=== PATIENT | female | born 1945 | race Caucasian/White ===

== ENCOUNTER 2021-07-21 12:27 | Emergency (ER) | payer OTHER ==
[~2021-07-21] VITALS: Ht 165.1 cm; Wt 77.1 kg
[2021-07-21] MEDS ORDERED: MEMA10TA PO (12:42)
[2021-07-21] MEDS ORDERED: BENA20TA9 PO (12:42)
[2021-07-21] MEDS ORDERED: DULO60CA45 PO (12:42)
[2021-07-21] MEDS ORDERED: FEXO-65 PO (12:42)
[2021-07-21] MEDS ORDERED: ASPI81TA31 PO (12:42)
[2021-07-21] MEDS ORDERED: CHOL2000 PO (12:42)
[2021-07-21] MEDS ORDERED: LEVO88TA5 PO (12:42)
[2021-07-21] MEDS ORDERED: SENN-261 PO (12:42)
[2021-07-21] MEDS ORDERED: PANT40TA49 PO (12:42)
[2021-07-21] MEDS ORDERED: ATOR20TA PO (12:42)
[2021-07-21] MEDS ORDERED: ESCI20TA PO (12:42)
[2021-07-21] MEDS ORDERED: DOCU240C26 PO (12:42)
[2021-07-21 12:51] LABS: HEMATOCRIT 40.8 % (31.2-41.9); MEAN CORPUSCULAR HEMOGLOBIN 31.3 uug (24.7-32.8); MEAN CORPUSCULAR VOLUME 89.3 fL (75.5-95.3); PLATELET COUNT (AUTO) 275 K/uL (179-408)
[2021-07-21 12:56] LABS: CARBON DIOXIDE 24 mmol/L (21-32); CHLORIDE 105 mmol/L (98-107); CREATININE 0.8 mg/dL (0.6-1.3); GLUCOSE 87 mg/dL (74-106); POTASSIUM 4.1 mmol/L (3.5-5.1); UREA NITROGEN, BLOOD 13 mg/dL (7-18)
[2021-07-21 13:07] LABS: ALANINE AMINOTRANSFERASE 20 U/L (14-59); ALKALINE PHOSPHATASE 111 U/L (50-136); ASPARTATE AMINOTRANSFERASE 23 U/L (15-37); BILIRUBIN,DIRECT 0.1 mg/dL (0.0-0.2); LIPASE 215 U/L (73-393); TOTAL PROTEIN, SERUM 6.6 g/dL (6.4-8.2)
[2021-07-21 13:21] LABS: BILIRUBIN,TOTAL 0.3 mg/dL (0.2-1.0)
[2021-07-21 13:38] LABS: *BILIRUBIN,URIN NEGATIVE (NEGATIVE); *BLOOD, URINE NEGATIVE (NEGATIVE); *CLARITY,URINE CLEAR (CLEAR); *COLOR,URINE LIGHT YELLOW (YELLOW); *KETONES,URINE NEGATIVE (NEGATIVE); *UROBILINOGEN,URINE 0.2 E.U./dl (NORMAL); LEUKOCYTE ESTERASE ,URINE 1+ (NEGATIVE); NITRITE, URINE NEGATIVE (NEGATIVE); PH,URINE 6.5 (5.0-8.0); UGLUCOSE NEGATIVE (NEGATIVE)
[2021-07-21 13:52] LABS: RBC,URINE 0-3 /HPF (0-3); WBC,URINE 0-3 /HPF (0-3)
[2021-07-21 13:53] LABS: BACTERIA,URINE NONE SEEN /HPF (NONE SEEN); SQUAMOUS EPITHELIAL CELL,UR FEW /HPF (NONE SEEN)
--- NOTE | 2021-07-21 14:25 | NUR ---
Pt sleeping in bed, no distress noted.
--- NOTE | 2021-07-21 17:47 | NUR ---
Gave pt d/c instructions and report to EMT's. Pt transported.
[2021-07-21 17:50] VITALS: BP 137/60
== END 2021-07-21 17:55 ==
LOC: ER 12:27
DX: R10.9 Unspecified abdominal pain (principal); F03.90 Unspecified dementia, unspecified severity, without behavioral disturbance, psychotic disturbance, mood disturbance, and anxiety; R47.01 Aphasia; Z79.82 Long term (current) use of aspirin; Z79.899 Other long term (current) drug therapy; K57.30 Diverticulosis of large intestine without perforation or abscess without bleeding; M48.54XA Collapsed vertebra, not elsewhere classified, thoracic region, initial encounter for fracture
CPT/HCPCS: 36415; 71045; 83690; 84484; 85025; 87086; 93005; A4663

== ENCOUNTER 2021-10-24 11:45 | Emergency (ER) | payer OTHER ==
[~2021-10-24] VITALS: Ht 165.1 cm; Wt 77.1 kg
[~2021-10-24 11:45] MED LIST: ASPI81TA31 PO; ATOR20TA PO; BENA20TA9 PO; CHOL2000 PO; DOCU240C26 PO; DULO60CA45 PO; ESCI20TA PO; FEXO-65 PO; LEVO88TA5 PO; MEMA10TA PO; PANT40TA49 PO; SENN-261 PO
--- NOTE | 2021-10-24 11:47 | NUR ---
MD at bedside, medical screening exam in progress.
--- NOTE | 2021-10-24 12:20 | NUR ---
UA sent to lab.
[2021-10-24 12:33] LABS: *BILIRUBIN,URIN NEGATIVE (NEGATIVE); *BLOOD, URINE NEGATIVE (NEGATIVE); *CLARITY,URINE CLEAR (CLEAR); *COLOR,URINE YELLOW (YELLOW); *KETONES,URINE NEGATIVE (NEGATIVE); *UROBILINOGEN,URINE 0.2 E.U./dl (NORMAL); LEUKOCYTE ESTERASE ,URINE 3+ (NEGATIVE); NITRITE, URINE NEGATIVE (NEGATIVE); PH,URINE 5.5 (5.0-8.0); UGLUCOSE NEGATIVE (NEGATIVE)
[2021-10-24 12:52] LABS: THYROID STIMULATING HORMONE 2.778 mIU/mL (0.358-3.740)
[2021-10-24 12:54] LABS: BACTERIA,URINE FEW /HPF (NONE SEEN); RBC,URINE 0-3 /HPF (0-3); SQUAMOUS EPITHELIAL CELL,UR FEW /HPF (NONE SEEN); WBC,URINE 20-50 /HPF (0-3)
[2021-10-24 13:00] LABS: HEMATOCRIT 39.3 % (31.2-41.9); MEAN CORPUSCULAR HEMOGLOBIN 30.2 uug (24.7-32.8); MEAN CORPUSCULAR VOLUME 89.5 fL (75.5-95.3); PLATELET COUNT (AUTO) 233 K/uL (179-408)
[2021-10-24 13:02] LABS: BILIRUBIN,DIRECT 0.1 mg/dL (0.0-0.2); BILIRUBIN,TOTAL 0.4 mg/dL (0.2-1.0); POTASSIUM 4.1 mmol/L (3.5-5.1); TOTAL PROTEIN, SERUM 6.7 g/dL (6.4-8.2)
[2021-10-24] MEDS ORDERED: CEPH500T PO (13:23)
--- NOTE | 2021-10-24 13:42 | NUR ---
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
--- NOTE | 2021-10-24 14:33 | NUR ---
Patient discharged to home in stable condition pick and shovel worker by lex ex . Written and verbal after care instructions given to pt and ex lex. Patient and ex verbalizes understanding of instructions. Stressed follow up or return to ER for worsening s/s.
--- NOTE | 2021-10-24 14:33 | NUR ---
All pts belongings was given to pt and ex lex.
[2021-10-24 14:34] VITALS: BP 122/80
== END 2021-10-24 14:35 | disposition home or self-care (01) ==
LOC: ER 11:45
DX: F03.90 Unspecified dementia, unspecified severity, without behavioral disturbance, psychotic disturbance, mood disturbance, and anxiety (principal); N39.0 Urinary tract infection, site not specified; I69.320 Aphasia following cerebral infarction; E03.9 Hypothyroidism, unspecified; I25.10 Atherosclerotic heart disease of native coronary artery without angina pectoris; I73.9 Peripheral vascular disease, unspecified; F32.A Depression, unspecified; F41.9 Anxiety disorder, unspecified; K21.9 Gastro-esophageal reflux disease without esophagitis; Z79.890 Hormone replacement therapy; Z79.899 Other long term (current) drug therapy
CPT/HCPCS: 36415; 70450; 71045; 84443; 85025; 87086; 93005; A4663

== ENCOUNTER 2022-01-29 12:22 | Emergency (ER) | payer OTHER ==
[~2022-01-29] VITALS: Ht 167.6 cm; Wt 90.7 kg
[~2022-01-29 12:22] MED LIST changes: +CEPH500T PO
[2022-01-29] MEDS ORDERED: IV NORMAL SALINE 1000 ML BAG IV ONE (12:30)
[2022-01-29] MEDS ORDERED: ACETAMINOPHEN ES 500 MG TABLET PO ONE (12:30)
[2022-01-29] MEDS ORDERED: CYAN500T9 PO (12:44)
[2022-01-29] MEDS ORDERED: LORA0.5T PO (12:46)
[2022-01-29 13:03] LABS: HEMATOCRIT 38.1 % (31.2-41.9); MEAN CORPUSCULAR HEMOGLOBIN 30.3 uug (24.7-32.8); MEAN CORPUSCULAR VOLUME 90.8 fL (75.5-95.3); PLATELET COUNT (AUTO) 235 K/uL (179-408)
[2022-01-29] MEDS ORDERED: ACETAMINOPHEN ES 500 MG TABLET ONE (13:10)
[2022-01-29 13:12] LABS: ALANINE AMINOTRANSFERASE 22 U/L (14-59); ALKALINE PHOSPHATASE 97 U/L (50-136); ASPARTATE AMINOTRANSFERASE 13 U/L (15-37); BILIRUBIN,DIRECT 0.1 mg/dL (0.0-0.2); BILIRUBIN,TOTAL 0.5 mg/dL (0.2-1.0); CARBON DIOXIDE 23 mmol/L (21-32); CHLORIDE 108 mmol/L (98-107); CREATININE 0.9 mg/dL (0.6-1.3); GLUCOSE 100 mg/dL (74-106); POTASSIUM 3.6 mmol/L (3.5-5.1); TOTAL PROTEIN, SERUM 6.1 g/dL (6.4-8.2); UREA NITROGEN, BLOOD 14 mg/dL (7-18)
[2022-01-29 14:19] LABS: *BILIRUBIN,URIN NEGATIVE (NEGATIVE); *BLOOD, URINE NEGATIVE (NEGATIVE); *CLARITY,URINE CLEAR (CLEAR); *COLOR,URINE YELLOW (YELLOW); *KETONES,URINE NEGATIVE (NEGATIVE); *UROBILINOGEN,URINE 0.2 E.U./dl (NORMAL); LEUKOCYTE ESTERASE ,URINE 1+ (NEGATIVE); NITRITE, URINE NEGATIVE (NEGATIVE); PH,URINE 6.5 (5.0-8.0); UGLUCOSE NEGATIVE (NEGATIVE)
[2022-01-29 15:00] LABS: BACTERIA,URINE FEW /HPF (NONE SEEN); RBC,URINE NONE SEEN /HPF (0-3)
[2022-01-29 15:01] LABS: SQUAMOUS EPITHELIAL CELL,UR FEW /HPF (NONE SEEN)
--- NOTE | 2022-01-29 15:06 | NUR ---
Called report to María Elena, caregiver, [facility].
--- NOTE | 2022-01-29 16:51 | NUR ---
Gave report and d/c instructions to EMT's, pt transported.
[2022-01-29 16:53] VITALS: BP 107/65
== END 2022-01-29 17:02 ==
LOC: ER 12:22
DX: R51.9 Headache, unspecified (principal); I69.920 Aphasia following unspecified cerebrovascular disease; E03.9 Hypothyroidism, unspecified; I73.9 Peripheral vascular disease, unspecified; I10 Essential (primary) hypertension; Z79.82 Long term (current) use of aspirin; Z79.890 Hormone replacement therapy; Z79.899 Other long term (current) drug therapy; F03.90 Unspecified dementia, unspecified severity, without behavioral disturbance, psychotic disturbance, mood disturbance, and anxiety; K21.9 Gastro-esophageal reflux disease without esophagitis; F39 Unspecified mood [affective] disorder; I70.0 Atherosclerosis of aorta; I25.10 Atherosclerotic heart disease of native coronary artery without angina pectoris
CPT/HCPCS: 99285; 96360; 70450; 71045; 80076; 80048; 81001; 85025; 87086; 84484; 36415; 93005; J7040; A4663; A9150

== ENCOUNTER 2022-04-04 13:27 | Emergency (ER) | payer OTHER ==
[~2022-04-04] VITALS: Ht 162.6 cm; Wt 68.0 kg
[~2022-04-04 13:27] MED LIST changes: -CEPH500T PO; +CYAN500T9 PO; +LORA0.5T PO
--- NOTE | 2022-04-04 13:40 | NUR ---
Pt triaged and placed in a w/c in the hallway. ER is saturated and there are no beds available.
--- NOTE | 2022-04-04 13:45 | NUR ---
TALI is here and speaking with the pt.
[2022-04-04] MEDS ORDERED: HALOPERIDOL LACTATE 5 MG/1 ML VIAL IM ONE (14:00)
--- NOTE | 2022-04-04 14:29 | NUR ---
Spoke with Dina from PET team via telephone and requested eval, she stated to call her once the pt is medically cleared.
--- NOTE | 2022-04-04 14:45 | NUR ---
Pt agitated, got out of the w/c in the hallway and was trying to walk out of the ER. Solomon king was called. Pt redirected, brought back and placed in the w/c in the hallway. There still are no ER beds available and pt remains in the hallway. There is no staff/sitter available for 1:1 observation.
[2022-04-04] MEDS ORDERED: OLANZAPINE 5 MG TABLET PO ONE (15:15)
[2022-04-04] MEDS ORDERED: LORAZEPAM 0.5 MG TABLET PO ONE ×3 (15:15→21:15)
[2022-04-04 16:59] LABS: HEMATOCRIT 41.4 % (31.2-41.9); MEAN CORPUSCULAR HEMOGLOBIN 30.5 uug (24.7-32.8); MEAN CORPUSCULAR VOLUME 90.4 fL (75.5-95.3); PLATELET COUNT (AUTO) 293 K/uL (179-408)
[2022-04-04 17:21] LABS: CARBON DIOXIDE 28 mmol/L (21-32); CHLORIDE 104 mmol/L (98-107); GLUCOSE 148 mg/dL (74-106); POTASSIUM 4.1 mmol/L (3.5-5.1); UREA NITROGEN, BLOOD 14 mg/dL (7-18)
[2022-04-04 17:27] LABS: ALANINE AMINOTRANSFERASE 29 U/L (14-59); ALKALINE PHOSPHATASE 113 U/L (50-136); ASPARTATE AMINOTRANSFERASE 20 U/L (15-37); BILIRUBIN,DIRECT 0.1 mg/dL (0.0-0.2); BILIRUBIN,TOTAL 0.4 mg/dL (0.2-1.0)
[2022-04-04 18:26] LABS: *BILIRUBIN,URIN NEGATIVE (NEGATIVE); *CLARITY,URINE CLEAR (CLEAR); *KETONES,URINE NEGATIVE (NEGATIVE); *UROBILINOGEN,URINE 0.2 E.U./dl (NORMAL); LEUKOCYTE ESTERASE ,URINE 1+ (NEGATIVE); NITRITE, URINE NEGATIVE (NEGATIVE); PH,URINE 5.5 (5.0-8.0); UGLUCOSE NEGATIVE (NEGATIVE)
[2022-04-04 18:35] LABS: *AMPHETAMINE, URINE NEGATIVE (NEGATIVE); *CANNABINOID, URINE NEGATIVE (NEGATIVE); *COCCAINE, URINE NEGATIVE (NEGATIVE); *OPIATE, URINE NEGATIVE (NEGATIVE); *PHENCYCLIDINE SCREEN,URINE NEGATIVE (NEGATIVE)
[2022-04-04 18:40] LABS: ACETAMINOPHEN < 2.0 ug/mL (10-30)
[2022-04-04 18:48] LABS: *BLOOD, URINE TRACE (NEGATIVE); *COLOR,URINE HAZY (YELLOW)
[2022-04-04 18:49] LABS: BACTERIA,URINE FEW /HPF (NONE SEEN)
[2022-04-04 18:50] LABS: SQUAMOUS EPITHELIAL CELL,UR FEW /HPF (NONE SEEN)
--- NOTE | 2022-04-04 18:55 | NUR ---
Pt is medically clear, spoke with Dina via telephone who stated she will come in to eval the pt. Pt has been calm and cooperative, she at dinner with good appetite.
[2022-04-04 19:17] LABS: ETHANOL < 3 MG/DL (0-0)
[2022-04-04] MEDS ORDERED: LORAZEPAM 0.5 MG TABLET ONE (19:41)
[2022-04-04] MEDS ORDERED: CYAN100T44 PO (20:08)
[2022-04-04] MEDS ORDERED: CHOL200010 PO (20:08)
[2022-04-04] MEDS ORDERED: ACET-73 PO (20:08)
[2022-04-04] MEDS ORDERED: DOCU250C14 PO (20:08)
[2022-04-04] MEDS ORDERED: CYCL30DR OP (20:08)
[2022-04-04] MEDS ORDERED: ATOR20TA PO (20:08)
[2022-04-04] MEDS ORDERED: BENA20TA9 PO (20:08)
[2022-04-04] MEDS ORDERED: ASPI81TA31 PO (20:08)
[2022-04-04] MEDS ORDERED: LORAZEPAM 1 MG TABLET ONE (21:26)
[2022-04-04] MEDS ORDERED: OLANZAPINE 10 MG VIAL IM ONE ×2 (21:45→22:06)
--- NOTE | 2022-04-04 22:30 | NUR ---
Dina from PET TEAM placed patient on [id number] hold.
--- NOTE | 2022-04-05 02:02 | NUR ---
PATIENT SLEEPING ON GURNY WITH NO DISTRESS NOTED.
--- NOTE | 2022-04-05 03:10 | NUR ---
MARIAM FROM PET TEAM CAME BACK TO FAX TO DIFFERENT [facility] FACILITY FOR POSSIBLE TRANSFER. SHE ALSO STATES THAT DR LOVE WILL SEE PATIENT SOMETIME IN THE AM.
--- NOTE | 2022-04-05 08:15 | NUR ---
Note yary in EDM - 04/05/22 at 1715 by JARED Sas Programmer assumes care: 1st contact with patient, alseep, easily arousable, calm & cooperative at this time. Spouse is at bedside, pending accepting hospital at the moment.
--- NOTE | 2022-04-05 08:15 | NUR ---
Silk Weaver assumes care: 1st contact with patient, alseep, easily arousable, calm & cooperative at this time. Sitter (1:1) ASHLEY Griffiths is at bedside, pending accepting hospital at the moment. SUKHDEEP.
--- NOTE | 2022-04-05 08:30 | NUR ---
Clinical Social Work Note: SW contacted and faxed the patient's clinical information to [facility] (fax: [phone]), [facility] ([phone]) , [facility] ([phone]) , [facility] ([phone]) , [facility] (fax:[phone]), and [facility] (fax: [phone]). SW will continue to follow up.
--- NOTE | 2022-04-05 09:21 | NUR ---
Psych Dr Lea came and evaluated the patient.
--- NOTE | 2022-04-05 09:53 | NUR ---
VIOLETA Palomino of [facility] said that this patient is accepted, pending faxed COVID results.
--- NOTE | 2022-04-05 10:12 | NUR ---
Patient ate breakfast with good appetite.
--- NOTE | 2022-04-05 10:54 | NUR ---
COVID test result faxed 2x with fax confirmation received.
--- NOTE | 2022-04-05 10:55 | NUR ---
COVID test results faxed to [facility] per request.
--- NOTE | 2022-04-05 11:49 | NUR ---
Patient is intermittently agitated but redirectable, still confuse and tangential.
[2022-04-05] MEDS ORDERED: OLANZAPINE 10 MG VIAL IM ONE ×2 (12:15→12:44)
--- NOTE | 2022-04-05 12:30 | NUR ---
Patient is getting agitated, MD notified. Security assistance requested.
--- NOTE | 2022-04-05 13:26 | NUR ---
[place] [employer] dispatcher maintenance Shahram gave ETA of 1545pm.
--- NOTE | 2022-04-05 14:18 | NUR ---
Note undone in EDM - 04/05/22 at 1733 by JARED Patient is resting comfortably on gurney with eyes closed, 1:1 sitter at bedside. BLS ambulance [id number]. Patient will tranfer to outside facility: [facility] Physician: Dr. Siegel Location: room 113-A nurse: Magdiel guajardo nursing [facility] Transfer information was verified by trail maintenance worker VIOLETA Palomino of [facility].
--- NOTE | 2022-04-05 14:18 | NUR ---
Patient is resting comfortably on gurney with eyes closed, 1:1 sitter at bedside. BLS ambulance [id number]. Patient will transfer to an outside facility: [facility] Physician: Dr. Siegel accepted the patient Location: direct admission to room 113-A nurse: Magdiel MONK accepted nursing [facility] Transfer information was verified by home economics extension worker VIOLETA Palomino of [facility].
--- NOTE | 2022-04-05 15:15 | NUR ---
Patient left ER in a calm, cooperative and stable condition with engineer booster and exhauster Scott and Chance.
== END 2022-04-05 15:15 | disposition short-term general hospital (02) ==
LOC: ER 13:27
DX: F03.911 Unspecified dementia, unspecified severity, with agitation (principal); F41.9 Anxiety disorder, unspecified; F32.A Depression, unspecified; I69.320 Aphasia following cerebral infarction; E78.5 Hyperlipidemia, unspecified; E03.9 Hypothyroidism, unspecified; I73.9 Peripheral vascular disease, unspecified; H04.129 Dry eye syndrome of unspecified lacrimal gland; F39 Unspecified mood [affective] disorder; K21.9 Gastro-esophageal reflux disease without esophagitis; Z79.890 Hormone replacement therapy; Z79.899 Other long term (current) drug therapy; Z79.82 Long term (current) use of aspirin; Z20.822 Contact with and (suspected) exposure to COVID-19
CPT/HCPCS: 36415; 85025; G0480; J2358

== ENCOUNTER 2022-09-05 22:18 | Emergency (ER) | payer OTHER ==
[~2022-09-05] VITALS: Ht 170.2 cm; Wt 81.6 kg
[~2022-09-05 22:18] MED LIST changes: +ACET-73 PO; +CHOL200010 PO; +CYAN100T44 PO; +CYCL30DR OP; +DOCU250C14 PO
[2022-09-05] MEDS ORDERED: MORPHINE SULFATE 4 MG/1 ML DISP.SYRIN IV ONE (22:30)
[2022-09-05] MEDS ORDERED: MORPHINE SULFATE 4 MG/1 ML DISP.SYRIN ONE (22:43)
[2022-09-05 22:48] LABS: HEMATOCRIT 38.5 % (31.2-41.9); MEAN CORPUSCULAR HEMOGLOBIN 29.6 uug (24.7-32.8); MEAN CORPUSCULAR VOLUME 89.4 fL (75.5-95.3); PLATELET COUNT (AUTO) 244 K/uL (179-408)
[2022-09-05 23:04] LABS: CARBON DIOXIDE 28 mmol/L (21-32); CHLORIDE 109 mmol/L (98-107); CREATININE 0.9 mg/dL (0.6-1.3); GLUCOSE 108 mg/dL (74-106); POTASSIUM 3.4 mmol/L (3.5-5.1); UREA NITROGEN, BLOOD 16 mg/dL (7-18)
[2022-09-05 23:17] LABS: ALANINE AMINOTRANSFERASE 22 U/L (14-59); ALKALINE PHOSPHATASE 110 U/L (50-136); ASPARTATE AMINOTRANSFERASE 16 U/L (15-37); BILIRUBIN,DIRECT 0.1 mg/dL (0.0-0.2); BILIRUBIN,TOTAL 0.2 mg/dL (0.2-1.0); TOTAL PROTEIN, SERUM 6.4 g/dL (6.4-8.2)
[2022-09-06] MEDS ORDERED: IOHEXOL 300MG/ML 100 ML INFUS..BTL ONE (00:08)
[2022-09-06] MEDS ORDERED: SWABABLE VALVE TRANSFER SET EA MC ONE ×2 (00:08→00:11)
[2022-09-06] MEDS ORDERED: IV NORMAL SALINE 250 ML IV ONE (00:08)
[2022-09-06] MEDS ORDERED: DICL100G31 TP (03:05)
--- NOTE | 2022-09-06 03:28 | NUR ---
Called [place] [facility] for transport. Stated that ETA is 20min.
--- NOTE | 2022-09-06 03:55 | NUR ---
[place] [facility] unit # [id number] came to pickle pumper and transport patient back to her facility.
[2022-09-06 06:18] VITALS: BP 155/82
== END 2022-09-06 04:15 | disposition home or self-care (01) ==
LOC: ER 22:18
DX: G89.4 Chronic pain syndrome (principal); M25.512 Pain in left shoulder; M25.511 Pain in right shoulder; E78.5 Hyperlipidemia, unspecified; K21.9 Gastro-esophageal reflux disease without esophagitis; E03.9 Hypothyroidism, unspecified; Z79.899 Other long term (current) drug therapy; Z79.82 Long term (current) use of aspirin
CPT/HCPCS: 99285; 74175; 96374; 71045; 80076; 80048; 83880; 85025; 85379; 85730; 84484 ×3; 36415 ×2; 93005; 71275; J2270; Q9967; A4663

== ENCOUNTER 2023-06-17 10:43 | Emergency (ER) | payer OTHER ==
[~2023-06-17] VITALS: Ht 160 cm; Wt 79.4 kg
[~2023-06-17 10:43] MED LIST changes: +DICL100G31 TP
[2023-06-17 14:33] VITALS: BP 112/80; TEMP 98; O2SAT 99
== END 2023-06-17 14:34 ==
LOC: ER 10:43
DX: S09.8XXA Other specified injuries of head, initial encounter (principal); F03.90 Unspecified dementia, unspecified severity, without behavioral disturbance, psychotic disturbance, mood disturbance, and anxiety; E78.5 Hyperlipidemia, unspecified; E03.9 Hypothyroidism, unspecified; Z79.82 Long term (current) use of aspirin; Z79.899 Other long term (current) drug therapy; W01.0XXA Fall on same level from slipping, tripping and stumbling without subsequent striking against object, initial encounter; Y93.89 Activity, other specified; Y92.89 Other specified places as the place of occurrence of the external cause; Y99.8 Other external cause status
CPT/HCPCS: 70450; 72125; 73030; 73060; A4606; A4663